=== PATIENT | female | born 1985 | race Hispanic/Latino ===

== ENCOUNTER 2018-01-23 08:00 | Outpatient (CLI) | payer OTHER ==
--- NOTE | 2018-01-23 09:43 | ULT ---
PELVIC ULTRASOUND: HISTORY: . Assess size and dates. TECHNIQUE: A transabdominal ultrasound is obtained. FINDINGS: There is a single viable intrauterine identified. Volente-rump length indicates a gestationa l age of 10 weeks 1 day. heart rate is recorded at 157. Gestational sac appears normally main tained. Both ovaries are identified. Prominent cyst, right ovary, measures up to 2 cm, which may represent c orpus luteum. Color Doppler and spectral analysis demonstrates blood flow to both ovaries. IMPRESSION: A single viable intrauterine . Volente-rump length indicates a gestational age of 10 weeks 1 day. POS: [facility]
== END 2018-01-23 08:01 | disposition home or self-care (01) ==
LOC: SCSULT 08:00
PROVIDERS: ATTEND Obstetrics & Gynecology
DX: O09.91 Supervision of high risk pregnancy, unspecified, first trimester (principal); Z3A.10 10 weeks gestation of pregnancy
CPT/HCPCS: 76856

== ENCOUNTER 2018-04-04 21:36 | Day surgery (SDC) | payer OTHER ==
[2018-04-04 22:32] VITALS: BMI 28.0
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
== END 2018-04-05 01:00 | disposition home health service (06) ==
LOC: ERS 21:36 → L&D/OP 21:36 → EDSTATUS 21:49 → L&D/OP 04-05 01:00
PROVIDERS: ATTEND Obstetrics & Gynecology
DX: O99.89 Other specified diseases and conditions complicating pregnancy, childbirth and the puerperium (principal); R10.2 Pelvic and perineal pain; Z3A.20 20 weeks gestation of pregnancy; Z79.899 Other long term (current) drug therapy; V89.2XXA Person injured in unspecified motor-vehicle accident, traffic, initial encounter
CPT/HCPCS: 90471; 90686; 99282; G0008

== ENCOUNTER 2018-07-12 15:33 | Day surgery (SDC) | payer OTHER ==
--- NOTE | 2018-07-12 12:28 | ULT ---
OB ULTRASOUND: INDICATIONS: Assess size and dates. FINDINGS: There is a single viable intrauterine . Gestational age by ultrasound is 34 weeks 5 days. Biometry measurements show inconsistencies with head size. BPD: 36 weeks 5 days HC: 36 weeks 6 days AC: 32 weeks 0 days FL: 32 weeks 6 days The placenta is anterior and low lying. The tip of the placenta is noted just above the internal os. Amniotic fluid is low. The YUKI is recorded at 3.76 cm. The internal os is dilated. There is funneling, with amniotic fluid seen within a dilated endocervic al canal. HEART RATE: 124 beats per minute. LIMITED ANATOMY SURVEY: The intracranial contents were evaluated, however, and there is no rea dence of hydrocephalus. The ventricles are normal in size and position. IMPRESSION: 1. Viable intrauterine gestation. 2. Oligohydramnios. 3. Anterior low-lying placenta. The tip of the placenta extends to the internal os. 4. Dilated internal os and dilated endocervical canal with funneling of amniotic fluid into the endo cervical canal. 5. Discrepant biometry measurements with an enlarged head circumference, in relation to the body shelby surements. The findings were discussed with Dr. Winters's nurse, and she will contact the patient regarding fol lowup. CODE CR POS: [facility]
[2018-07-12] MEDS ORDERED: Lactated Ringer's 2,000 ML IV SCH (17:00)
[2018-07-12 17:18] VITALS: BMI 30.9
[2018-07-12 17:21] LABS: Amnisure Internal Control QC ACCEPTABLE (ACCEPTABLE); Amnisure Test No Membranes Rupture (No Rupture)
[2018-07-12] MEDS: Dexamethasone 4 mg/ml Vial IM SCH (17:41)
[2018-07-12] MEDS ORDERED: Docusate 100 MG CAP PO PRN (17:54)
[2018-07-12] MEDS ORDERED: Zolpidem Tartrate 5 MG TAB PO PRN (17:54)
[2018-07-12] MEDS ORDERED: Acetaminophen 500 MG TAB PO PRN (17:54)
[2018-07-12] MEDS ORDERED: Ondansetron PF 4 MG/2 ML Vial IVP PRN (17:54)
[2018-07-12] MEDS ORDERED: Promethazine HCl 25 MG/ML VIAL IM PRN (17:54)
--- NOTE | 2018-07-12 18:03 | PDOC.LDHP ---
Labor and Delivery H&P Chief complaint: other (oligohydramnios on ultrasound) HPI: 33yo at 34w1d by LMP that had sono today that showed YUKI 3.76 and dilated cervix. Pt has no complaints, no VB LOF, no ctx, some right sided groin and pubic pain. Good FM. Current gestational age (weeks): 34 Due date: 08/22/18 Dating criteria: last menstrual period Grav: 4 Para: 3 OB History Details: Prior CS x 1, prior x 2, doc LTCS for NRFHT Current complications: oligohydramnios Abnormal US findings: Yes (oligo YUKI 3 and head measuring 2w ahead, as of sono today.) Past Medical History: denies Current medications: pre- vitamins Previous surgical history: low tranverse CS Allergies/Adverse Reactions: Allergies Allergy/AdvReac Type Severity Reaction Status Date / Time No Known Allergies Allergy Verified 07/12/18 17:16 Social history: none - Physical Exam Vital signs reviewed and normal: yes General: NAD Heart: RRR Lungs: CTAB Abdomen: gravid Extremeties: no edema FHT: category 1 [place] contractions every: occasional q 5min, not felt by pt - Vaginal Exam cm dilated: 3 Effacement: 50% Station: -3 - OB Labs Blood type: O RH: negative Antibody Screen: positive HIV: negative RPR: negative HEPSAg: negative 1 hour GCT: negative GBS: unknown Urine drug screen: negative Rubella: immune - Assessment Oligohydramnios at 34 weeks - Plan Plan: admit to L&D -: monitoring, IVF, BPP for oligo repeat as indicated based on score. Steroids for FLM Will FU head measurements in office next week if continues to be GBS swab Routine labs Prior CS x 1, for TOLAC understands risk of uterine rupture, desires to proceed. Pt is good candidate with 2 prior .
[2018-07-12] MEDS ORDERED: Lactated Ringer's 1,000 ML IV SCH (19:00)
--- NOTE | 2018-07-12 19:26 | ULT ---
ULTRASOUND BIOPHYSICAL PROFILE: 07/12/18 HISTORY: Oligohydramnios, 34 weeks . COMPARISON: Earlier exam, 10:25 a.m., 07/12/18. Again noted is a single intrauterine fetus in cephalic presentation. heart rate 144 beats per m inute. Amniotic fluid index 5.8. breathing was not demonstrated. IMPRESSION: Abnormally low amniotic fluid index at 5.8. No breathing demonstrated on the biophysical profile with an overall score of [address] Gonzalez was made aware of these findings at the time of the study. POS: [facility]
[2018-07-12 19:50] LABS: Mean Corpuscular HGB CONC 34.4 g/dL (32.0-36.0); Mean Corpuscular Hemoglobin 32.1 pg (27.0-31.0); Mean Corpuscular Volume 93.2 fL (78.0-98.0); Mean Platelet Volume 8.7 fL (7.4-10.4); Platelet Count 168 thou/uL (130-400); RBC Distribution Width 11.7 % (11.5-14.5); Red Blood Cell (RBC) Count 3.73 mill/uL (4.20-5.40); White Blood Cell (WBC) Count 10.9 thou/uL (4.8-10.8)
[2018-07-12 20:31] LABS: Syphilis Antibody Nonreactive (Nonreactive); Syphilis Antibody Index 0.03 S/CO (<1.00 Non-Reactive)
--- NOTE | 2018-07-12 20:38 | PDOC.EVN ---
Event Note - Event Note Event Note: FU note HD1 Pt sent for evaluation of low YUKI. YUKI increased to 5.8cm after IV hydration. ? Asymmetric growth on US report, however may be artifact of breech and low YUKI on initial US. BPP 8/10, -2 for breathing movements. Pt would like to stay over night vs. leaving and returning for 12hr dexamethasone #2, lives in [place]. Plan to keep overnight, repeat steroid 2/4 in AM w NST. If reactive will return tomorrow evening for BPP and dexamethasone 3/4. Questions answered , Dr. Gonzalez aware of plan of care.
[2018-07-12 22:33] LABS: Hep B Surf Ag Non-Reactive S/CO (NonReactive)
[2018-07-13] MEDS: Dexamethasone 4 mg/ml Vial IM SCH ×2 (05:45→17:54)
--- NOTE | 2018-07-13 17:11 | DIS ---
DATE OF ADMISSION: 07/12/2018 DATE OF DISCHARGE: 07/13/2018 TIME OF DISCHARGE: Approximately 1730 hours. SUMMARY OF HOSPITAL COURSE: The patient was admitted with a low YUKI and possible asymmetric growth on ultrasound, was had a category 1 heart rate tracing throughout her stay. She received her third dose of 4 dexamethasone secondary to possible inability to obtain betamethasone. We will discharge the patient home after she received this at approximately 1730 hours tonight. The patient will return a.m. of 07/14 for followup dexamethasone #4 dose with a 20 minute heart rate tracing and will then follow up at [facility] [place] on Sunday, 07/15 for followup BPP and YUKI. Job ID: [id number]
[2018-07-13] MEDS ORDERED: Fluconazole 100 MG TAB PO SCH (17:30)
[2018-07-13 18:07] VITALS: BP 128/76; TEMP 98.4
== END 2018-07-13 18:11 | disposition home health service (06) ==
LOC: SDC 15:33 → L&D/OP 07-13 18:11
PROVIDERS: ATTEND Student in an Organized Health Care Education/Training Program
DX: O41.03X0 Oligohydramnios, third trimester, not applicable or unspecified (principal); Z3A.34 34 weeks gestation of pregnancy; Z79.899 Other long term (current) drug therapy
CPT/HCPCS: 36415; 76816; 76819; 84112; 85027; 86780; 86850; 86900; 86901; 87081; 87340; 87480; 87510; 87660; 99285; J1100

== ENCOUNTER 2018-07-14 05:42 | Day surgery (SDC) | payer OTHER ==
[2018-07-14 06:19] VITALS: BP 108/55; TEMP 98.6
[2018-07-14] MEDS ORDERED: Dexamethasone 4 mg/ml Vial IM SCH (06:30)
[2018-07-14] MEDS ORDERED: Dexamethasone 4 mg/ml Vial SLOW IVP SCH (06:30)
[2018-07-14 06:51] VITALS: BMI 30.9
== END 2018-07-14 06:45 | disposition home or self-care (01) ==
LOC: L&D/OP 05:42
PROVIDERS: ATTEND Obstetrics & Gynecology
DX: Z29.8 Encounter for other specified prophylactic measures (principal)
CPT/HCPCS: 59025; 96372; 99282; J1100

== ENCOUNTER 2018-07-15 12:47 | Inpatient (IN) | payer MEDICAID, OTHER, SELFPAY ==
[2018-07-15] MEDS ORDERED: Methylergonovine 0.2 MG/ML VIAL IM PRN (13:02)
[2018-07-15] MEDS ORDERED: Misoprostol 200 MCG TAB PR PRN (13:02)
[2018-07-15] MEDS ORDERED: Butorphanol Tartrate 1 MG/ML VIAL SLOW IVP PRN (13:02)
[2018-07-15] MEDS ORDERED: Ondansetron PF 4 MG/2 ML Vial IVP PRN ×2 (13:02→23:11)
[2018-07-15] MEDS ORDERED: NS / Oxytocin 40 units/1000ml 1,000 ML IV PRN (13:02)
[2018-07-15] MEDS ORDERED: Promethazine HCl 25 MG/ML VIAL IM PRN ×2 (13:02→23:11)
[2018-07-15] MEDS ORDERED: Carboprost 250 MCG/ML AMP IM PRN (13:02)
[2018-07-15] MEDS ORDERED: Diphenoxylate HCl/Atropine Tablet PO PRN (13:02)
[2018-07-15] MEDS ORDERED: HYDROcodone/Acetaminophen 5/325 mg Tablet PO PRN (13:02)
[2018-07-15] MEDS ORDERED: Ibuprofen 800 MG TAB PO PRN (13:02)
[2018-07-15] MEDS ORDERED: Lidocaine 1% (PF) 30 ML VIAL SC PRN (13:02)
[2018-07-15] MEDS ORDERED: Acetaminophen 500 MG TAB PO PRN (13:02)
--- NOTE | 2018-07-15 13:09 | PDOC.LDHP ---
Labor and Delivery H&P Chief complaint: other (persistent oligohydramnios) HPI: 33 yo @ 34w4d by LMP c/w 10 week CRL who was sent from clinic for IOL due to persistent oligohydramnios. Pt was evaluated last week for oligohydramnios, received IVF hydration and steroid course for FLM. BPP 11/16 today with YUKI 4 cm. Due to findings reviewed with MFM and recommended delivery. Current gestational age (weeks): 34 Due date: 08/22/18 Dating criteria: last menstrual period Grav: 4 Para: 3 OB History Details: 1 LTCS 2 VBACs Current complications: oligohydramnios Abnormal US findings: No Past Medical History: Denies Current medications: pre-monet vitamins Previous surgical history: low tranverse CS Allergies/Adverse Reactions: Allergies Allergy/AdvReac Type Severity Reaction Status Date / Time No Known Allergies Allergy Verified 07/12/18 17:16 Social history: none - Physical Exam Vital signs reviewed and normal: yes General: NAD Heart: RRR Lungs: nonlabored breathing Abdomen: gravid Extremeties: no edema FHT: category 1 (140s, mod brittanie +accel, no decels) [place] contractions every: none - Vaginal Exam cm dilated: 3 (cephalic ) Effacement: 50% Station: -2 - OB Labs Blood type: O RH: positive ((incorrectly typed rh neg in chart)) Antibody Screen: negative HIV: negative RPR: negative HEPSAg: negative 1 hour GCT: negative GBS: unknown Urine drug screen: negative Rubella: immune Additional Labs: NIPT negative - Assessment 34w4d IUP Persistent oligohydramnios H/O LTCS x1, x2 - Plan Plan: admit to L&D (start pitocin for IOL), GBS antibiotic prophylaxis, informed consent obtained, anesthesia consult for pain management, other ( Reviewed with MFM who recommended delivery due to persistence. Pt desires TOLAC. All R/B/A/I for TOLAC vs RCD reviewed. All questions answered.)
[2018-07-15] MEDS ORDERED: NS w/ Oxytocin 10 units 500 ML IV SCH (13:15)
[2018-07-15] MEDS ORDERED: Penicillin G Potassium 5 MILL.UNITS in Sodium Chloride 0.9% 100 ML IVPB SCH (13:15)
[2018-07-15] MEDS: Lactated Ringer's 1,000 ML IV SCH (13:40)
[2018-07-15 13:54] LABS: Hemoglobin 12.2 g/dL (12.0-16.0); Mean Corpuscular HGB CONC 34.1 g/dL (32.0-36.0); Mean Corpuscular Hemoglobin 31.9 pg (27.0-31.0); Mean Corpuscular Volume 93.5 fL (78.0-98.0); Mean Platelet Volume 8.5 fL (7.4-10.4); Platelet Count 182 thou/uL (130-400); RBC Distribution Width 11.9 % (11.5-14.5); Red Blood Cell (RBC) Count 3.82 mill/uL (4.20-5.40)
[2018-07-15 14:14] VITALS: BMI 30.7
[2018-07-15 14:43] LABS: HBSAg Index 0.24 S/CO (0-0.99); HIV (1/2) Antibody/Antigen Non-Reactive (NonReactive); Hep B Surf Ag Non-Reactive S/CO (NonReactive); Syphilis Antibody Nonreactive (Nonreactive); Syphilis Antibody Index 0.04 S/CO (<1.00 Non-Reactive)
[2018-07-15] MEDS ORDERED: PHENYLEPHRINE-NS 100 MCG/ML 10 ML SYRINGE ONE ×2 (15:37→22:47)
[2018-07-15] MEDS ORDERED: Dexamethasone 20 MG/5 ML VIAL ONE (15:37)
[2018-07-15] MEDS ORDERED: Ondansetron PF 4 MG/2 ML Vial ONE ×2 (15:37→22:47)
--- NOTE | 2018-07-15 17:33 | PDOC.LDPN ---
Labor & Delivery Progress Note - Subjective Subjective: comfortable - Objective Vital signs reviewed and normal: yes General: NAD Uterine fundus: non tender Dilation: 4 Effacement: 50% Station: -2 FHT: category 1 (140s, mod brittanie, +accels, no decels ) [place] contractions every: irregular, on pitocin FSE placed: yes - Assessment (1) 34 weeks gestation of Code(s): Z3A.34 - 34 WEEKS GESTATION OF Current Visit: Yes Status : Acute (2) Oligohydramnios Code(s): O41.00X0 - OLIGOHYDRAMNIOS, UNSP TRIMESTER, NOT APPLICABLE OR UNSP Current Visit: Yes Status: Acute (3) Encounter for trial of labor Code(s): [id number] - Current Visit: Yes Status: Acute -: AROM with FSE done. Minimal fluid. Small amount of bleeding with cervical exam. Continue pitocin. NICU at delivery due to prematurity.
[2018-07-15] MEDS: Penicillin G 2.5 MILL.units 2.5 MILL.UNITS in Premix Bag 1 BAG IVPB SCH (18:17)
[2018-07-15] MEDS ORDERED: Bicitra 30 ML UDCUP ONE (22:29)
[2018-07-15] MEDS ORDERED: CEFAZOLIN 2 GM/50 ML BAG ONE (22:29)
[2018-07-15] MEDS ORDERED: CEFAZOLIN 2 GM/50 ML BAG IVPB SCH (22:45)
[2018-07-15] MEDS ORDERED: Bicitra 30 ML UDCUP PO SCH (22:45)
[2018-07-15] MEDS ORDERED: Morphine PF 1 MG/ML SYR ONE (22:47)
[2018-07-15] MEDS ORDERED: Dexamethasone 4 mg/ml Vial ONE (22:47)
[2018-07-15] MEDS ORDERED: Fentanyl 100 MCG/2 ML VIAL ONE (22:47)
[2018-07-15] MEDS ORDERED: Oxytocin 10 UNITS/ML VIAL ONE (22:47)
--- NOTE | 2018-07-15 23:01 | PDOC.LDPN ---
Labor & Delivery Progress Note - Subjective Subjective: comfortable, other (Called by RN due to concern for malposition. ) - Objective Vital signs reviewed and normal: yes General: NAD Uterine fundus: non tender SVE: now breech with knee presentation, FSE travels past os into cavity. Dilation: 5-6 Effacement: 50% FHT: category 1 (130s, mod brittanie, +accels, no decels ) [place] contractions every: ctx stopped with d/c pitocin. Other exam findings: Bedside sono confirms now knee/breech presentation and oligo - Assessment (1) 34 weeks gestation of Code(s): Z3A.34 - 34 WEEKS GESTATION OF Current Visit: Yes Status : Acute (2) Oligohydramnios Code(s): O41.00X0 - OLIGOHYDRAMNIOS, UNSP TRIMESTER, NOT APPLICABLE OR UNSP Current Visit: Yes Status: Acute (3) Encounter for trial of labor Code(s): [id number] - Current Visit: Yes Status: Acute (4) malpresentation Code(s): O32.9XX0 - MATERNAL CARE FOR MALPRESENTATION OF FETUS, UNSP, UNSP Current Visit: Yes Status: Acute Qualifiers: malpresentation type: breech -: Reviewed sono with pt. Pt originally cephalic and AROM with FSE. On exam now, breech with ?knee presentation and FSE still attached to head based on vaginal exam (FSE travels past cervical os and knee palpated on exam without FSE attached). Confirmed with sono. Reviewed recommendation for RCD with pt based on malpresentation and unstable lie. All questions answered.
[2018-07-15] MEDS ORDERED: Ketorolac Tromethamine 30 MG/ML VIAL IVP PRN (23:11)
[2018-07-15] MEDS ORDERED: Naloxone HCl 0.4 mg/ml Vial IV PRN (23:11)
[2018-07-15] MEDS ORDERED: HYDROmorphone 2 MG/ML VIAL SLOW IVP PRN (23:11)
[2018-07-15] MEDS ORDERED: Naloxone HCl 0.4 mg/ml Vial IVP PRN ×2 (23:11)
[2018-07-15] MEDS ORDERED: diphenhydrAMINE 50 MG/ML VIAL IVP PRN (23:11)
[2018-07-15] MEDS ORDERED: Eucerin (Mineral Oil/Petrolatum,White) 30 gm Jar TOP PRN (23:11)
[2018-07-15] MEDS ORDERED: Meperidine HCl/PF 25 MG/ML VIAL SLOW IVP PRN (23:11)
[2018-07-15] MEDS ORDERED: Ondansetron HCl/PF 4 MG/2 ML Vial IVP PRN (23:11)
[2018-07-15] MEDS ORDERED: L&D-Morphine 4 MG/ML VIAL SLOW IVP PRN (23:11)
[2018-07-15] MEDS ORDERED: Promethazine HCl 25 MG SUPP PR PRN (23:11)
[2018-07-15] MEDS ORDERED: Communication Order-Pharmacy FS SCH (23:15)
[2018-07-15] MEDS ORDERED: Ketorolac Tromethamine 30 MG/ML VIAL IVP SCH (23:15)
[2018-07-15] MEDS ORDERED: Azithromycin 500 MG in Sodium Chloride 0.9% 250 ML 250 ML IVPB SCH (23:45)
[2018-07-16 00:09] LABS: Actual Bicarbonate (HCO3v) 23 mEq/L (22-28); pH (Cord, venous) 7.37 (7.32-7.43)
[2018-07-16 00:12] LABS: Base Excess -2.2 mEq/L (-2.0 to +3.0)
--- NOTE | 2018-07-16 00:12 | PDOC.OPDEL ---
OB Operative/Delivery Note Delivery Dr/Surgeon: Salma Zhong DO Pre-Delivery Diagnosis: medically indicated induction Procedure/Post Delivery Dx: repeat low transverse CS Weeks gestation: 34 Anesthesia: spinal - Findings A Sex: female - 1 min: 8 - 5 min: 8 - Additional Findings/Plan Placenta delivered: manual removal findings: low transverse hysterotomy without extension, normal uterus, normal tubes, normal ovaries Estimated blood loss: QBL 643 cc Compilations/Other Findings: Infant in footling breech presentation at delivery. Delivered without complication. FSE on scalp noted, evidence of unstable lie with version to breech presentation in labor. Scant clear amniotic fluid Normal appearing placenta with some calcifications, no abruption seen. Normal appearing cord. Dictation [id number] Post delivery plan: routine recovery ( to NICU due to prematurity.)
[2018-07-16] MEDS ORDERED: Bisacodyl 10 MG SUPP PR PRN (03:13)
[2018-07-16] MEDS ORDERED: Methylergonovine 0.2 MG/ML VIAL IM PRN (03:13)
[2018-07-16] MEDS ORDERED: Misoprostol 200 MCG TAB PR PRN (03:13)
[2018-07-16] MEDS ORDERED: diphenhydrAMINE 25 MG CAP PO PRN (03:13)
[2018-07-16] MEDS ORDERED: Simethicone Chewable 80 MG TAB PO PRN (03:13)
[2018-07-16] MEDS ORDERED: HYDROcodone/Acetaminophen 5/325 mg Tablet PO PRN (03:13)
[2018-07-16] MEDS ORDERED: NS / Oxytocin 40 units/1000ml 1,000 ML IV SCH (03:13)
[2018-07-16] MEDS: Lactated Ringer's 1,000 ML IV SCH ×4 (07:14→22:28)
[2018-07-16] MEDS: Penicillin G 2.5 MILL.units 2.5 MILL.UNITS in Premix Bag 1 BAG IVPB SCH ×3 (07:14→19:41)
[2018-07-16] MEDS: Ibuprofen 800 MG TAB PO SCH ×3 (07:44→21:47)
[2018-07-16] MEDS: Prenatal Vitamin 1 TAB PO SCH (07:44)
[2018-07-16] MEDS: Docusate Calcium (SURFAK) 240 MG CAP PO SCH ×2 (07:44→21:47)
--- NOTE | 2018-07-16 07:47 | PDOC.PP ---
Post Progress Note Post Day #: 1 PO intake tolerated: no Flatus: no Ambulation: yes Weight Weight 168 lb - Physical Examination General: NAD Cardiovascular: RRR Respiratory: non-labored breathing Abdominal: no distention, appropriately TTP Fundus firm & at: umb Psychiatric: normal affect Result Diagrams: 07/16/18 08:48 Additional Labs: Post Labs Blood Type O POSITIVE 07/15/18 13:40 Hep Bs Antigen Non-Reactive S/CO (NonReactive) 07/15/18 13:40 - Assessment/Plan POD1 s/p RCS for malposition and oligo at 34w VSSAF Doing well appropriate milestones, DC ava, advance diet Routine advances Hgb pending postop, no sx anemia Breastpumping, in NICU Rh pos RImm Cont postop care.
[2018-07-16 09:12] LABS: #Lymphocytes 1.7 thou/uL (1.20-3.40); #Monocytes 0.6 thou/uL (0.11-0.59); #Neutrophils 10.9 thou/uL (1.40-6.50); %Basophils 0.2 % (0.0-1.0); %Eosinophils 0.2 % (0.0-10.0); %Lymphocytes 13.2 % (21.0-51.0); %Monocytes 4.2 % (0.0-10.0); %Neutrophils 82.2 % (42.0-75.0); Hemoglobin 11.5 g/dL (12.0-16.0); Mean Corpuscular HGB CONC 33.5 g/dL (32.0-36.0); Mean Corpuscular Hemoglobin 31.1 pg (27.0-31.0); Mean Corpuscular Volume 92.8 fL (78.0-98.0); Mean Platelet Volume 8.4 fL (7.4-10.4); Platelet Count 168 thou/uL (130-400); RBC Distribution Width 11.7 % (11.5-14.5); Red Blood Cell (RBC) Count 3.68 mill/uL (4.20-5.40); White Blood Cell (WBC) Count 13.2 thou/uL (4.8-10.8)
[2018-07-16] MEDS ORDERED: Sodium Chloride 0.9% 10 ML ONE (09:18)
--- NOTE | 2018-07-16 11:06 | OP ---
DATE OF PROCEDURE: 07/15/2018 PREOPERATIVE DIAGNOSES: 1. 34-week 4-day intrauterine . 2. Persistent oligohydramnios. 3. History of a low transverse delivery x1 and vaginal after x2. 4. malpresentation with unstable lie. POSTOPERATIVE DIAGNOSES: 1. 34-week 4-day intrauterine . 2. Persistent oligohydramnios. 3. History of a low transverse delivery x1 and vaginal after x2. 4. malpresentation with unstable lie. PROCEDURE PERFORMED: Repeat low transverse section via Pfannenstiel skin incision. SURGEON: Salma Zhong DO TUBULAR PRODUCTS FABRICATOR: Eric Shi MD COMPLICATIONS: None. QBL: 643 mL. IV FLUIDS: 2000 mL. URINARY OUTPUT: 600 mL. FINDINGS: A viable female in footling breech presentation with Apgars of 8 and 8 and normal-appearing placenta with some calcification, but no signs of abruption and scant clear amniotic fluid. Normal appearing uterus, fallopian tubes and ovaries. INDICATIONS FOR THE PROCEDURE: Ms. Katie López is a 33-year-old G4, P3, at 34 weeks and 4 days, who was admitted for an induction after consultation with Maternal Medicine due to persistent oligohydramnios. The patient had undergone IV fluid hydration along with steroid administration for lung maturity last week. She presented to clinic today for a biophysical profile and found to have an YUKI of 4. The patient was counseled and delivery was recommended. The patient had a history of one prior low transverse delivery and two prior VBACs. She desired a trial of labor. The fetus was in cephalic presentation on sonogram. The patient underwent induction using Pitocin and was given penicillin for GBS prophylaxis. The patient was ruptured using an FSE. I was then called by the nurse for concern for malpresentation as she progressed in labor. A bedside ultrasound was performed, that confirmed the fetus was now in breech presentation with a presumed possibly a knee presenting at the cervical os. On vaginal examination, the FSE was palpated to extend beyond the cervical os. Therefore, with these findings, it was likely the fetus was initially in cephalic presentation and converted to a breech presentation during her labor process. She had been put in several different positions, which may have contributed to this. DESCRIPTION OF PROCEDURE: The patient was brought to the operating room. Spinal anesthesia was placed. She was placed in supine position with a leftward tilt. The intrauterine pressure catheter was removed. The FSE was unable to be removed as the head was no longer the presenting part. Therefore, this was cut and then planned to be removed at delivery. The abdomen was prepped and draped in a sterile fashion and a Matthews catheter was placed. An official time-out was performed. Anesthesia was assessed and proven to be adequate. A Pfannenstiel skin incision was made using the previous scar. This was carried down to the underlying fascial layer. The fascia was incised in the midline and extended bilaterally using Childers scissors. The superior aspect of the fascial incision was grasped using Heide clamps, extended upward, and dissected free from the underlying rectus abdominis muscles. The same was performed at the inferior aspect of the fascial incision. Peritoneum was then entered bluntly. There were some thin omental adhesions, that were transected using the Bovie. The Nicolas O retractor was then placed into the abdomen. The thin adhesions from the dome of the bladder to the lower uterine segment were then transected using Metzenbaum scissors creating a bladder flap. There was development of the lower uterine segment to some degree, therefore, a low-transverse hysterotomy was able to be performed. The lower uterine segment was grasped using Allis clamps and elevated, and this was incised using the scalpel. The incision was then extended using blunt dissection, and the amniotic membranes were ruptured during this blunt dissection noting very minimal scant amniotic fluid. The was in footling breech presentation. The feet were grasped and then traction was placed and the fetus was delivered through a low transverse hysterotomy in the typical breech fashion. Flexion was maintained in the head during delivery, and umbilical cord was clamped and cut. The FSE was removed from the head. The infant was handed to the awaiting Neonatology Team. Cord gases and cord blood were obtained. The placenta was delivered manually intact. The uterus was cleared of all clot and debris. The uterus was exteriorized from the abdomen for evaluation of the hysterotomy and again was cleared of all clot and debris. The uterus was placed back into the abdomen. The hysterotomy was closed in a running locking fashion using 0 Monocryl. This did require 2 additional [id number] stitches at the right apex of the hysterotomy to obtain hemostasis. After this was done, hemostasis was maintained. The pelvis was irrigated and cleared of all clot and debris. The Nicolas O retractor was then removed from the abdomen. The fascia was closed using 0 PDS. The subcutaneous layer was copiously irrigated and hemostatic using the Bovie. Subcutaneous layer was closed using 3-0 Vicryl, and the skin was closed using 4-0 Monocryl and Dermabond. The patient tolerated the procedure well. There were no complications. All counts were correct x3. The mother will be transferred to routine recovery and the infant will be transferred to the Neonatology Unit due to prematurity. Job ID: [id number] [facility]
[2018-07-16] MEDS ORDERED: Fluconazole 100 MG TAB PO SCH (22:15)
[2018-07-17] MEDS: Ibuprofen 800 MG TAB PO SCH ×3 (06:02→21:41)
--- NOTE | 2018-07-17 08:16 | PDOC.PP ---
Post Progress Note Post Day #: 2 Subjective: Infant in NICU. Mild pain and minimal lochia. Pumping. No palpitations, SOB. Reports some dizziness last night, none now. PO intake tolerated: yes Flatus: yes Ambulation: yes Vital Signs (12 hours) Temp Pulse Resp BP Pulse Ox 07/17/18 04:18 98.2 F 75 16 95/54 L 97 07/17/18 00:13 98.3 F 78 16 95/52 L 98 07/16/18 21:40 98.5 F 97 18 98/57 L 97 Weight Weight 168 lb - Physical Examination General: NAD Cardiovascular: RRR Respiratory: non-labored breathing Abdominal: no distention, appropriately TTP Deviation from normal: no rebound or guarding. soft. Fundus firm & at: below umbilicus Skin: CS incision dry & intact Neurological: no gross focal deficits Psychiatric: A&Ox3, normal affect Result Diagrams: 07/16/18 08:48 Additional Labs: Post Labs Blood Type O POSITIVE 07/15/18 13:40 Hep Bs Antigen Non-Reactive S/CO (NonReactive) 07/15/18 13:40 (1) 34 weeks gestation of Code(s): Z3A.34 - 34 WEEKS GESTATION OF Status: Resolved (2) Oligohydramnios Code(s): O41.00X0 - OLIGOHYDRAMNIOS, UNSP TRIMESTER, NOT APPLICABLE OR UNSP Status: Resolved (3) Encounter for trial of labor Code(s): [id number] - Status: Resolved (4) malpresentation Code(s): O32.9XX0 - MATERNAL CARE FOR MALPRESENTATION OF FETUS, UNSP, UNSP Status: Resolved Qualifiers: malpresentation type: breech (5) delivery delivered Code(s): O82 - ENCOUNTER FOR DELIVERY WITHOUT INDICATION Status: Acute - Assessment/Plan PPD 2 Noted slight hypotension overnight and this AM. No bleeding and abdominal exam benign. Continue to monitor. Repeat CBC. Otherwise continue PP care. Plan for d/c 1-2 days due to infant in NICU.
[2018-07-17 09:45] LABS: #Lymphocytes 2.8 thou/uL (1.20-3.40); #Monocytes 0.7 thou/uL (0.11-0.59); #Neutrophils 7.3 thou/uL (1.40-6.50); %Basophils 0.4 % (0.0-1.0); %Eosinophils 0.2 % (0.0-10.0); %Lymphocytes 25.5 % (21.0-51.0); %Monocytes 6.6 % (0.0-10.0); %Neutrophils 67.4 % (42.0-75.0); Hemoglobin 10.6 g/dL (12.0-16.0); Mean Corpuscular HGB CONC 33.4 g/dL (32.0-36.0); Mean Corpuscular Hemoglobin 31.7 pg (27.0-31.0); Mean Corpuscular Volume 94.9 fL (78.0-98.0); Mean Platelet Volume 7.6 fL (7.4-10.4); Platelet Count 135 thou/uL (130-400); Red Blood Cell (RBC) Count 3.35 mill/uL (4.20-5.40); White Blood Cell (WBC) Count 10.9 thou/uL (4.8-10.8)
[2018-07-17] MEDS: Docusate Calcium (SURFAK) 240 MG CAP PO SCH ×2 (09:51→21:23)
[2018-07-17] MEDS: Prenatal Vitamin 1 TAB PO SCH (09:51)
[2018-07-17] MEDS: Penicillin G 2.5 MILL.units 2.5 MILL.UNITS in Premix Bag 1 BAG IVPB SCH ×2 (16:28→21:23)
[2018-07-17] MEDS: Lactated Ringer's 1,000 ML IV SCH ×2 (18:50→21:23)
[2018-07-18] MEDS: Lactated Ringer's 1,000 ML IV SCH ×3 (05:59→19:36)
[2018-07-18] MEDS: Ibuprofen 800 MG TAB PO SCH ×3 (06:04→22:09)
--- NOTE | 2018-07-18 08:40 | PDOC.PP ---
Post Progress Note Post Day #: 3 Subjective: Infant still in NICU for feeding purposes. Pt denies any pain. Minimal lochia. No dizziness. PO intake tolerated: yes Flatus: yes Ambulation: yes Vital Signs (12 hours) Temp Pulse Resp BP BP Pulse Ox 07/18/18 08:00 98.4 F 80 20 99/55 L 99 07/18/18 00:00 98.0 F 88 20 105/55 L 07/17/18 20:45 98.7 F 95 20 100/50 L 94 L Weight Weight 168 lb - Physical Examination General: NAD Cardiovascular: RRR Respiratory: non-labored breathing Abdominal: no distention, appropriately TTP Fundus firm & at: below umbilicus Extremities: negative homans (B) Skin: CS incision dry & intact, no rash Neurological: no gross focal deficits Psychiatric: A&Ox3, normal affect Result Diagrams: 07/17/18 09:28 Additional Labs: Post Labs Blood Type O POSITIVE 07/15/18 13:40 Hep Bs Antigen Non-Reactive S/CO (NonReactive) 07/15/18 13:40 (1) 34 weeks gestation of Code(s): Z3A.34 - 34 WEEKS GESTATION OF Status: Resolved (2) Oligohydramnios Code(s): O41.00X0 - OLIGOHYDRAMNIOS, UNSP TRIMESTER, NOT APPLICABLE OR UNSP Status: Resolved (3) Encounter for trial of labor Code(s): [id number] - Status: Resolved (4) malpresentation Code(s): O32.9XX0 - MATERNAL CARE FOR MALPRESENTATION OF FETUS, UNSP, UNSP Status: Resolved Qualifiers: malpresentation type: breech (5) delivery delivered Code(s): O82 - ENCOUNTER FOR DELIVERY WITHOUT INDICATION Status: Acute (6) Anemia Code(s): D64.9 - ANEMIA, UNSPECIFIED Status: Acute Qualifiers: Other causes of anemia: acute posthemorrhagic - Assessment/Plan PPD3 VSSAF Repeat CBC as expected post op. Keep inpatient another night due to infant in NICU and breast feeding/pumping. Plan for d/c tomorrow, possible bed & breakfast.
[2018-07-18] MEDS: Ferrous Sulfate 325 MG TAB PO SCH (12:00)
[2018-07-18] MEDS: Prenatal Vitamin 1 TAB PO SCH (12:00)
[2018-07-18] MEDS: Docusate Calcium (SURFAK) 240 MG CAP PO SCH ×3 (12:00→22:11)
[2018-07-19] MEDS: Lactated Ringer's 1,000 ML IV SCH (00:06)
[2018-07-19] MEDS: Ibuprofen 800 MG TAB PO SCH ×2 (06:26→12:10)
[2018-07-19 08:12] VITALS: BP 107/59; TEMP 98.1
[2018-07-19] MEDS: Ferrous Sulfate 325 MG TAB PO SCH (08:14)
[2018-07-19] MEDS: Prenatal Vitamin 1 TAB PO SCH (08:14)
[2018-07-19] MEDS: Docusate Calcium (SURFAK) 240 MG CAP PO SCH (08:14)
--- NOTE | 2018-07-19 08:32 | PDOC.PP ---
Post Progress Note Post Day #: 4 Subjective: No concerns. Doing well. Minimal pain and lochia. Breast feeding/pumping. Infant still in NICU. PO intake tolerated: yes Flatus: yes Ambulation: yes Vital Signs (12 hours) Temp Pulse Resp BP BP Pulse Ox 07/19/18 08:19 99 07/19/18 08:12 98.1 F 79 18 107/59 L 97 07/18/18 22:15 98.2 F 82 16 106/55 L 99 Weight Weight 168 lb - Physical Examination General: NAD Cardiovascular: RRR Respiratory: non-labored breathing Abdominal: no distention, appropriately TTP Fundus firm & at: below umbilicus Extremities: negative homans (B) Skin: CS incision dry & intact, no rash Neurological: no gross focal deficits Psychiatric: A&Ox3, normal affect Result Diagrams: 07/17/18 09:28 Additional Labs: Post Labs Blood Type O POSITIVE 07/15/18 13:40 Hep Bs Antigen Non-Reactive S/CO (NonReactive) 07/15/18 13:40 (1) 34 weeks gestation of Code(s): Z3A.34 - 34 WEEKS GESTATION OF Status: Resolved (2) Oligohydramnios Code(s): O41.00X0 - OLIGOHYDRAMNIOS, UNSP TRIMESTER, NOT APPLICABLE OR UNSP Status: Resolved (3) Encounter for trial of labor Code(s): [id number] - Status: Resolved (4) malpresentation Code(s): O32.9XX0 - MATERNAL CARE FOR MALPRESENTATION OF FETUS, UNSP, UNSP Status: Resolved Qualifiers: malpresentation type: breech (5) delivery delivered Code(s): O82 - ENCOUNTER FOR DELIVERY WITHOUT INDICATION Status: Acute (6) Anemia Code(s): D64.9 - ANEMIA, UNSPECIFIED Status: Acute Qualifiers: Other causes of anemia: acute posthemorrhagic - Assessment/Plan PPD4 VSSAF Stable for d/c home today. Plans to stay at [facility] or [facility] due to in NICU. F/U 2 week incision check.
== END 2018-07-19 13:05 | disposition home or self-care (01) | DRG 786 ==
LOC: L&D 12:47 → 3SE 07-16 08:36
PROVIDERS: ADMIT Obstetrics & Gynecology; ATTEND Obstetrics & Gynecology
PROC: 10D00Z1 Extraction of Products of Conception, Low, Open Approach (ICD-10-PCS; principal; 2018-07-15)
PROC: 10907ZC Drainage of Amniotic Fluid, Therapeutic from Products of Conception, Via Natural or Artificial Opening (ICD-10-PCS; 2018-07-15)
PROC: 3E033VJ Introduction of Other Hormone into Peripheral Vein, Percutaneous Approach (ICD-10-PCS; 2018-07-15)
DX: O41.03X0 Oligohydramnios, third trimester, not applicable or unspecified (principal); O60.14X0 Preterm labor third trimester with preterm delivery third trimester, not applicable or unspecified; Z3A.34 34 weeks gestation of pregnancy; Z37.0 Single live birth; O34.211 Maternal care for low transverse scar from previous cesarean delivery; O32.1XX0 Maternal care for breech presentation, not applicable or unspecified
CPT/HCPCS: 36415; 51702; 82805; 85025; 85027; 86780; 86850; 86900; 86901; 87340; 87389; 88307; J0456; J1100; J2274; J2405; J2540; J2590; J3010; J7050